=== PATIENT | male | born 1995 | race African-American/Black ===

== ENCOUNTER 2017-02-11 18:36 | Emergency (ER) | payer OTHER ==
[2017-02-11 21:02] LABS: APPEARANCE,URINE SLIGHTLY-CLOUDY; BILIRUBIN,URINE NEGATIVE (NEGATIVE); GLUCOSE, URINE NEGATIVE (NEGATIVE); KETONES,URINE NEGATIVE (NEGATIVE); LEUKOCYTE ESTERASE,URINE TRACE (NEGATIVE); NITRITE,URINE NEGATIVE (NEGATIVE); PROTEIN,URINE NEGATIVE (NEGATIVE); URINE SPECIFIC GRAVITY 1.021; UROBILINOGEN,URINE NEGATIVE mg/dL (<2.0)
--- NOTE | 2017-02-11 21:07 | ER Document Report ---
ED General - General Chief Complaint: Penile Bleeding Stated Complaint: EXTERNAL BLEEDING Time Seen by Provider: 02/11/17 18:48 TRAVEL OUTSIDE OF THE [place] IN LAST 30 DAYS: No - HPI Patient complains to provider of: Hematospermia Notes: Patient coming in for 2 weeks of hematospermia. Denies any dysuria denies any fever chills nausea vomiting abdominal pain. Denies any weight loss. Patient states for similar episodes in the past and recommend patient avoid any masturbation or sex. Patient states he has been having sex more frequently and more masturbation to as well. Denies any pain - Related Data Allergies/Adverse Reactions: No Known Allergies Allergy (Verified 02/11/17 18:38) Past Medical History - Social History Smoking Status: Current Every Day Smoker Chew tobacco use (# tins/day): No Frequency of alcohol use: Occasional Drug Abuse: Marijuana Family History: Reviewed & Not Pertinent Patient has suicidal ideation: No Patient has homicidal ideation: No - Past Medical History Cardiac Medical History: Reports: Hx Hypertension - states "because I'm in pain " Denies: Hx Coronary Artery Disease, Hx Heart Attack Pulmonary Medical History: Denies: Hx Asthma, Hx Bronchitis, Hx COPD, Hx Pneumonia Neurological Medical History: Denies: Hx Cerebrovascular Accident, Hx Seizures Renal/ Medical History: Denies: Hx Peritoneal Dialysis Musculoskeltal Medical History: Denies Hx Arthritis Surgical Hx: Negative Past Surgical History: - Immunizations Immunizations up to date: Yes Hx Diphtheria, Pertussis, Tetanus Vaccination: Yes Review of Systems - Review of Systems Constitutional: No symptoms reported EENT: No symptoms reported Cardiovascular: No symptoms reported Respiratory: No symptoms reported Gastrointestinal: No symptoms reported Genitourinary: No symptoms reported Male Genitourinary: Other - Hematospermia Musculoskeletal: No symptoms reported Skin: No symptoms reported Hematologic/Lymphatic: No symptoms reported Neurological/Psychological: No symptoms reported Physical Exam - Vital signs Vitals: Temp Pulse Resp BP Pulse Ox 98.5 F 92 14 175/102 H 98 02/11/17 18:38 02/11/17 18:38 02/11/17 18:38 02/11/17 18:38 02/11/17 18:38 Interpretation: Normal - General General appearance: Appears well, Alert - HEENT Head: Normocephalic, Atraumatic Eyes: Normal Pupils: PERRL - Respiratory Respiratory status: No respiratory distress Chest status: Nontender Breath sounds: Normal Chest palpation: Normal - Cardiovascular Rhythm: Regular Heart sounds: Normal auscultation Murmur: No - Abdominal Inspection: Normal Distension: No distension Bowel sounds: Normal Tenderness: Nontender Organomegaly: No organomegaly - Genitourinary Inspection: Normal Tenderness: Nontender Cremasteric reflex: Normal Scrotum: Normal Notes: no Masses noted - Back Back: Normal, Nontender - Extremities General upper extremity: Normal inspection, Nontender, Normal color, Normal ROM , Normal temperature General lower extremity: Normal inspection, Nontender, Normal color, Normal ROM , Normal temperature, Normal weight bearing. No: Annabella's sign - Neurological Neuro grossly intact: Yes Cognition: Normal Orientation: AAOx4 [place] Coma Scale Eye Opening: Spontaneous [place] Coma Scale Verbal: Oriented [place] Coma Scale Motor: Obeys Commands [place] Coma Scale Total: 15 Speech: Normal Motor strength normal: LUE, RUE, LLE, RLE Sensory: Normal - Psychological Associated symptoms: Normal affect, Normal mood - Skin Skin Temperature: Warm Skin Moisture: Dry Skin Color: Normal Course - Re-evaluation Re-evalutation: 02/11/17 21:05 Pending urinalysis patient will be educated about avoidance of sex or masturbation for the next week to 2 weeks. Patient was also given family medicine to follow-up with 02/11/17 21:10 Urinalysis does not show any signs of any infection but does have small leukocyte esterase possibly related to STD. Patient will be empirically treated for gonorrhea chlamydia and trichomonas. - Vital Signs Vital signs: Temp Pulse Resp BP Pulse Ox 98.5 F 92 14 175/102 H 98 02/11/17 18:38 02/11/17 18:38 02/11/17 18:38 02/11/17 18:38 02/11/17 18:38 - Laboratory Laboratory results interpreted by me: 02/11/17 19:00 Ur Leukocyte Esterase TRACE H Discharge - Discharge Clinical Impression: Hematospermia Instructions: Hematuria (OM), Family Physicians / Practices Additional Instructions: Avoid sex or masturbation for the next 7 days. Follow-up with your primary care physician or one of the doctors provided. Your sexually transmitted disease testing is still pending we will go ahead and treat you for gonorrhea chlamydia and trichomonas. We treat gonorrhea with a shot of medication, Rocephin chlamydia with a medication called azithromycin and trichomonas with a medication called Flagyl. The antibiotics may make you nauseous for the next 24 hours we will give nausea medication because a friend to take if this occurs
[2017-02-11] MEDS ORDERED: CEFTRIAXONE INJ 250 MG VIAL IM ONE (21:08)
[2017-02-11] MEDS ORDERED: AZITHROMYCIN 1 GM SUSP PACKET PO ONE (21:08)
[2017-02-11] MEDS ORDERED: ONDANSETRON ODT 4 MG TAB (6 TAB/DSPK) PO PRN (21:09)
[2017-02-11] MEDS ORDERED: METRONIDAZOLE 500 MG TABLET PO ONE (21:09)
[2017-02-11 21:39] VITALS: BP 165/96
[2017-02-11 21:57] LABS: CHLAM PCR NOT DETECTED (NOT DETECT)
== END 2017-02-11 21:39 | disposition home or self-care (01) ==
LOC: ER 18:36
DX: R36.1 Hematospermia (principal); F17.200 Nicotine dependence, unspecified, uncomplicated
CPT/HCPCS: 99283; 96372; 81001; 87491; 87591; Q0144; J0696

== ENCOUNTER 2017-06-04 06:42 | Emergency (ER) | payer OTHER ==
[2017-06-04] MEDS ORDERED: ONDANSETRON 4 MG TAB.RAPDIS PO ONE (07:32)
--- NOTE | 2017-06-04 07:32 | ER Document Report ---
HPI - HPI Patient complains to provider of: left knee pain Onset: This afternoon - at work- they sent him here Onset/Duration: Gradual Pain Level: 1 Context: 22 yo obese male with chronic bilateral ankle swelling and pain (seen multiple providers including podiatry, orthopedics- can't afford the PT they wanted him to have, c/o left knee pain and [employer] sent him here because he coudln't work. He has callous on both knees because after he works his ankles and feet hurt so much he has to crawl on his knees. Has been told that the talr joints are a problem, started in his left ankle before August of this year.No hx gout. Watching him walk without socks and shoes, bilt ankle eversion with flexion of toes, no arches. Associated Symptoms: None Exacerbated by: Standing, Walking Similar symptoms previously: Yes Recently seen / treated by doctor: No - ROS ROS below otherwise negative: Yes Systems Reviewed and Negative: Yes All other systems reviewed and negative - DERM Skin Color: Normal Past Medical History - General Information source: Patient - Social History Smoking Status: Unknown if Ever Smoked Frequency of alcohol use: None Drug Abuse: None Lives with: Family Family History: Reviewed & Not Pertinent Patient has suicidal ideation: No Patient has homicidal ideation: No - Past Medical History Cardiac Medical History: Reports: Hx Hypertension - states "because I'm in pain " Renal/ Medical History: Denies: Hx Peritoneal Dialysis Musculoskeltal Medical History: Denies Hx Gout, Reports Other - problems with ankles Surgical Hx: Negative Past Surgical History: - Immunizations Immunizations up to date: Yes Hx Diphtheria, Pertussis, Tetanus Vaccination: Yes Vertical Provider Document - CONSTITUTIONAL Agree With Documented VS: Yes Exam Limitations: No Limitations General Appearance: No Apparent Distress - INFECTION CONTROL TRAVEL OUTSIDE OF THE [place] IN LAST 30 DAYS: No - HEENT HEENT: Normocephalic - NECK Neck: Supple - RESPIRATORY O2 Sat by Pulse Oximetry: 99 - MUSCULOSKELETAL/EXTREMETIES Musculoskeletal/Extremeties: Edema - mild warm bilateral nkle joints, limited dorsifelxion and plantarflexion, inversion and eversion rom very limited. 2+ dp , no rash - NEURO Level of Consciousness: Awake, Alert Motor/Sensory: No Motor Deficit, No Sensory Deficit Course - Vital Signs Vital signs: Temp Pulse Resp BP Pulse Ox 97.7 F 75 16 137/91 H 99 06/04/17 06:44 06/04/17 06:44 06/04/17 06:44 06/04/17 06:44 06/04/17 06:44 - Laboratory Result Diagrams: 06/04/17 08:29 06/04/17 08:29 Discharge - Discharge Clinical Impression: chronic ankle pain and swelling, left knee pain Condition: Good Disposition: HOME, SELF-CARE Instructions: Anti-Inflammatory Medication ([facility]), Arthritis ([facility]) Additional Instructions: see car wash attendant automatic dr anthony you need to wear high top well supportive shoes take the motrin regularly with food to er if worse Please complete the patient satisfaction survey if you get one, and return it.. If you do not receive a survey, then you can go to the [facility] website, [email or web address] and place your comments about your very good care. Thank you very much. It was a pleasure being your medical provider today. Prescriptions: Ibuprofen [Motrin 800 mg Tablet] 800 mg PO Q8HP PRN #30 tablet PRN Reason: Forms: Return to Work Referrals: MATHEW ANTHONY MD [ACTIVE STAFF] - Follow up as needed
--- NOTE | 2017-06-04 08:25 | RADIOLOGY REPORT (SQ) ---
EXAM DESCRIPTION: ANKLE BILATERAL 3 VIEWS MIN COMPLETED DATE/TIME: 06/04/2017 8:11 am REASON FOR STUDY: pain and swelling COMPARISON: Left ankle films 09/13/2015 NUMBER OF VIEWS: Three views. TECHNIQUE: AP, lateral, and oblique radiographic images acquired of the right and left ankle. LIMITATIONS: None. FINDINGS: MINERALIZATION: Normal. BONES: No acute fracture or dislocation. No worrisome bone lesions. JOINTS: No right or left ankle joint effusion. There is bilateral bony spurring at the talonavicular joint. SOFT TISSUES: Bilateral diffuse ankle soft tissue swelling. No foreign body. OTHER: No other significant finding. IMPRESSION: Bilateral diffuse ankle soft tissue swelling. No ankle joint effusion. No acute fracture or malalignment. Talonavicular joint bony spurring. TECHNICAL DOCUMENTATION: JOB ID: [id number] [employer]- All Rights Reserved
[2017-06-04 08:46] LABS: ABSOLUTE EOSINOPHILS # (AUTO) 0.1 10^3/uL (0.0-0.6); ABSOLUTE LYMPHOCYTES (AUTO) 2.6 10^3/uL (0.5-4.7); ABSOLUTE MONOCYTES (AUTO) 0.7 10^3/uL (0.1-1.4); ABSOLUTE NEUT (AUTO) 3.7 10^3/uL (1.7-8.2); BASOPHILS % (AUTO) 0.4 % (0-2); EOSINOPHILS % (AUTO) 1.6 % (0-6); HEMATOCRIT 42.5 % (37.9-51.0); HEMOGLOBIN 14.2 g/dL (13.5-17.0); HGB HCT DIFFERENCE 0.1; LYMPHOCYTES % (AUTO) 36.3 % (13-45); MEAN CORPUSCULAR HEMOGLOBIN 27.7 pg (27.0-33.4); MEAN CORPUSCULAR HGB CONC 33.5 g/dL (32.0-36.0); MEAN CORPUSCULAR VOLUME 83 fl (80-97); MONOCYTES % (AUTO) 9.9 % (3-13); RED BLOOD COUNT 5.14 10^6/uL (4.35-5.55); RED CELL DISTRIBUTION WIDTH 14.1 % (11.5-14.0); SEGMENTED NEUTROPHILS % (AUTO) 51.8 % (42-78); WHITE BLOOD COUNT 7.2 10^3/uL (4.0-10.5)
[2017-06-04 09:04] LABS: ALANINE AMINOTRANSFERASE 40 U/L (21-72); ALBUMIN 4.7 g/dL (3.5-5.0); ALKALINE PHOSPHATASE 70 U/L (38-126); ANION GAP 14 (5-19); ASPARTATE AMINO TRANSFERASE 24 U/L (17-59); BILIRUBIN,DIRECT 0.4 mg/dL (0.0-0.4); BILIRUBIN,TOTAL 0.7 mg/dL (0.2-1.3); BLOOD UREA NITROGEN 13 mg/dL (7-20); C-REACTIVE PROTEIN 21.4 mg/L (<10.0); CALCIUM 10.2 mg/dL (8.4-10.2); CARBON DIOXIDE 26 mmol/L (22-30); CHLORIDE 105 mmol/L (98-107); GLUCOSE 93 mg/dL (75-110); POTASSIUM 4.2 mmol/L (3.6-5.0); SODIUM 144.8 mmol/L (137-145); TOTAL PROTEIN 8.4 g/dL (6.3-8.2); URIC ACID 7.8 mg/dL (3.5-8.5)
[2017-06-04 09:23] LABS: ERYTHROCYTE SEDIMENTATION RATE 23 mm/hr (0-15)
[2017-06-04] MEDS ORDERED: IBUPROFEN 800 MG TABLET PO ONE (10:49)
[2017-06-04 10:58] VITALS: BP 135/75
== END 2017-06-04 10:58 | disposition home or self-care (01) ==
LOC: ER 06:42
DX: M25.571 Pain in right ankle and joints of right foot (principal); M25.572 Pain in left ankle and joints of left foot; M79.89 Other specified soft tissue disorders; G89.29 Other chronic pain; M25.562 Pain in left knee
CPT/HCPCS: 99284; 36415; 84550; 85025; 85652; 86140; 80053; 73610; S0119